=== PATIENT | male | born 1940 | race Hispanic/Latino ===

== ENCOUNTER 2016-09-11 15:12 | Inpatient (IN) | payer MEDICARE, MEDICAID ==
[2016-09-11 15:13] VITALS: BMI 25.6
[2016-09-11 16:17] LABS: BASO # 0.1 K/uL (0.0-0.2); BASO % 0.7 % (0.0-2.0); EOS # 0.1 K/uL (0.0-0.7); EOS % 0.3 % (0.0-4.0); LYMPH # 1.1 K/uL (1.0-4.3); LYMPH % 6.9 % (20.0-40.0); MEAN CORPUSCULAR HEMOGLOBIN 27.1 pg (27.0-31.0); MEAN CORPUSCULAR HGB CONC 31.7 g/dL (33.0-37.0); MEAN PLATELET VOLUME 8.2 fL (7.2-11.7); MONO # 1.6 K/uL (0.0-0.8); MONO % 9.7 % (0.0-10.0); PLATELET COUNT 304 K/uL (130-400); RED CELL DISTRIBUTION WIDTH 14.6 % (11.5-14.5); WHITE BLOOD COUNT 16.4 K/uL (4.8-10.8)
[2016-09-11 16:26] LABS: MEAN CELL VOLUME 85.4 fL (80.0-94.0)
[2016-09-11 16:28] LABS: CHLORIDE 94 mmol/L (98-107); POTASSIUM 4.4 mmol/L (3.6-5.2); SODIUM 129 mmol/L (132-148)
[2016-09-11 16:30] LABS: GFR AFRICAN-AMERICAN > 60
[2016-09-11 16:31] LABS: BLOOD UREA NITROGEN 21 mg/dL (9-20); CALCIUM 8.6 mg/dl (8.6-10.4); CARBON DIOXIDE 28 mmol/L (22-30); GLUCOSE,RANDOM 137 mg/dL (75-110)
--- NOTE | 2016-09-11 17:18 | C.PDOC ---
History Of Present Illness 75 y/o male sent to ED from [facility]. Pt was scheduled to see Dr White today but EMS never came to pick her up, so they brought her to the ED for evaluation of ongoing wounds to bilateral lower legs, L>R. PMHx CVA. Denies fever, chills, chest pain, SOB, weakness, or numbness. Time Seen by Provider: 09/11/16 15:21 Chief Complaint (Nursing): Abnormal Skin Integrity History Per: Patient History/Exam Limitations: no limitations Onset/Duration Of Symptoms: Days Current Symptoms Are (Timing): Still Present Severity: Moderate Recent travel outside of the [place]: No Past Medical History Reviewed: Historical Data, Nursing Documentation, Vital Signs Vital Signs: Last Vital Signs Temp 98.2 F 09/12/16 07:10 Pulse 109 H 09/12/16 08:00 Resp 20 09/12/16 07:10 BP 138/82 09/12/16 07:10 Pulse Ox 98 09/12/16 07:10 - Medical History PMH: Anxiety, Arthritis (R HAND), Asthma, COPD, CVA, HTN, Hypercholesterolemia - [facility] Procedures DILATION OF L FEM ART WITH DRUG-ELUT INTRALUM, PERC APPROACH (02/09/16) DILATION OF L FEM ART WITH INTRALUM DEV, PERC APPROACH (10/27/15) DILATION OF LEFT PERONEAL ARTERY, PERCUTANEOUS APPROACH (02/09/16) DILATION OF LEFT POPLITEAL ARTERY, PERCUTANEOUS APPROACH (02/09/16) EXTIRPATION OF MATTER FROM L FEM ART, PERC APPROACH (10/27/15) EXTIRPATION OF MATTER FROM L PERONEAL ART, PERC APPROACH (02/09/16) EXTIRPATION OF MATTER FROM L POPL ART, PERC APPROACH (02/09/16) PLAIN RADIOGRAPHY OF L LOW EXTREM ART USING L OSM CONTRAST (02/09/16) PLAIN RADIOGRAPHY OF L LOW EXTREM ART USING OTH CONTRAST (10/27/15) Family History: States: Unknown Family Hx - Social History Hx Tobacco Use: Yes (former smoker) Hx Alcohol Use: Yes Hx Substance Use: No Review Of Systems Constitutional: Negative for: Fever, Chills Cardiovascular: Negative for: Chest Pain Respiratory: Negative for: Shortness of Breath Musculoskeletal: Positive for: Other (chronic wounds to bilateral lower legs) Physical Exam - Physical Exam Appears: Non-toxic, Chronically Ill Skin: Warm, Dry, No Rash Head: Atraumatic, Normacephalic Chest: Symmetrical Cardiovascular: Rhythm Regular, No Murmur Respiratory: Normal Breath Sounds, No Rales, No Rhonchi, No Wheezing Gastrointestinal/Abdominal: Soft, No Tenderness Extremity: Other (Left leg: contracture of the knee, unable to fully extend. Extensive stage 4 ulcerations to distal tibia, dorsum of foot and plantar aspect of heel. Right leg: small area of stage 3 ulcers.) Neurological/Psych: Oriented x3, Normal Speech ED Course And Treatment - Laboratory Results Result Diagrams: 09/11/16 16:09 09/11/16 16:09 O2 Sat by Pulse Oximetry: 97 (on room air) Pulse Ox Interpretation: Normal Medical Decision Making Medical Decision Making: Discussed case with Christopher; he saw patient in ED, recommending admission to hospitalist, amputation likely. Patient's daughter at bedside, aware of the situation. Discussed with dr Prajapati admission refereed to perfusionist med per policy Discussed with and admitted to [facility] Disposition - Disposition Disposition: HOSPITALIZED Disposition Time: 00:00 Condition: FAIR - Clinical Impression Clinical Impression: PVD (peripheral vascular disease), Non-healing wound - Scribe Statement The provider has reviewed the documentation as recorded by the Chad Patino Provider Attestation: All medical record entries made by the Chad were at my direction and personally dictated by me. I have reviewed the chart and agree that the record accurately reflects my personal performance of the history, physical exam, medical decision making, and the department course for this patient. I have also personally directed, reviewed, and agree with the discharge instructions and disposition.
[2016-09-11 18:51] LABS: NEUTROPHIL 79 % (50-75); TOTAL CELLS COUNTED 100
[2016-09-11 18:52] LABS: LARGE PLATELETS PRESENT
--- NOTE | 2016-09-11 19:15 | CP.PCM.HP ---
History of Present Illness - History of Present Illness History of Present Illness: 75-year-old male patient with past medical history of COPD, CVA, hypertension, hypercholesterolemia, asthma who sent to the ED from senior care. Patient was scheduled to see Dr. White today but EMS never came to pick her up, so they brought her to the ED for evaluation of ongoing walker bilateral lower legs, left > right. Extent patient denies fever, chills, chest pain, shortness of breath, weakness, numbness. Present on Admission - Present on Admission Any Indicators Present on Admission: No Past Patient History - Tetanus Immunizations Tetanus Immunization: Up to Date - Past Medical History & Family History Past Medical History?: Yes - Past Social History Smoking Status: Former Smoker - CARDIAC Hx Hypercholesterolemia: Yes Hx Hypertension: Yes - PULMONARY Hx Asthma: Yes Hx Chronic Obstructive Pulmonary Disease (COPD): Yes - NEUROLOGICAL Hx Neurological Disorder: Yes HX Cerebrovascular Accident: Yes (with Ataxia, August 2015) Other/Comment: falls - HEENT Hx HEENT Problems: Yes Hx Cataracts: Yes - RENAL Hx Chronic Kidney Disease: No - INTEGUMENTARY Hx Dermatological Problems: No - MUSCULOSKELETAL/RHEUMATOLOGICAL Hx Arthritis: Yes (R HAND) - GASTROINTESTINAL Hx Gastrointestinal Disorders: No - GENITOURINARY/GYNECOLOGICAL Hx Genitourinary Disorders: No - PSYCHIATRIC Hx Anxiety: Yes Hx Substance Use: No - SURGICAL HISTORY Hx Surgeries: Yes Hx Musculoskeletal Surgery: Yes (left elbow, right ankle) Other/Comment: cataract sx. lt. eye - ANESTHESIA Hx Anesthesia: Yes Hx Anesthesia Reactions: No Hx Malignant Hyperthermia: No Meds Allergies/Adverse Reactions: Allergies Allergy/AdvReac Type Severity Reaction Status Date / Time No Known Allergies Allergy Verified 09/11/16 15:39 Results - Vital Signs Recent Vital Signs: Last Vital Signs Temp 98.4 F 09/11/16 19:00 Pulse 118 H 09/11/16 19:00 Resp 20 09/11/16 19:00 BP 131/74 09/11/16 19:00 Pulse Ox 98 09/11/16 19:00 - Labs Result Diagrams: 09/17/16 07:10 09/17/16 07:10 Assessment & Plan (1) LINCOLN (acute kidney injury) Status: Acute (2) Acute CVA (cerebrovascular accident) Status: Acute (3) Ataxia Status: Acute (4) CVA (cerebral vascular accident) Status: Acute (5) Cellulitis Status: Acute (6) DVT prophylaxis Status: Acute (7) Dehydration Status: Acute (8) Diabetic foot ulcer Status: Acute Priority: High (9) Foot drop, left Status: Acute (10) Foot ulcer, left Status: Acute (11) Left-sided weakness Status: Acute (12) Leukocytosis Status: Acute (13) Non-healing wound Status: Acute (14) PVD (peripheral vascular disease) Status: Acute (15) Rectal bleeding Status: Acute (16) Renal insufficiency Status: Acute (17) Sacral decubitus ulcer Status: Acute (18) Seronegative arthropathy of hand Status: Acute (19) Ulcer of left ankle Status: Acute (20) COPD (chronic obstructive pulmonary disease) Status: Chronic (21) Diabetes mellitus Status: Chronic Priority: Medium (22) Hypertension Status: Chronic Priority: Medium (23) Incomplete RBBB Status: Chronic (24) PAD (peripheral artery disease) Status: Chronic (25) Small vessel disease, cerebrovascular Status: Chronic Priority: Medium (26) C. difficile colitis Status: Suspected - Assessment and Plan (Free Text) Plan: Consult cardiology Consult ID DuoNeb Plavix Heparin Piperacillin sod/tazobactam Cozaar Singulair Advair Diskus
[2016-09-11] MEDS: Piperacillin/Tazobact 3.375 GM in Sodium Chloride 100 ML IVPB SCH ×2 (19:33→20:00)
[2016-09-11] MEDS: Collagenase 250 Units/gm Ointment(30 gm) TOP SCH (23:08)
[2016-09-11] MEDS: Albuterol-Ipratrop 3 mg / 0.5 (3 ml) UD IH SCH (23:37)
[2016-09-12] MEDS: Piperacillin/Tazobact 3.375 GM in Sodium Chloride 100 ML IVPB SCH ×4 (01:30→20:30)
[2016-09-12] MEDS: Albuterol-Ipratrop 3 mg / 0.5 (3 ml) UD IH SCH ×2 (07:29→16:00)
--- NOTE | 2016-09-12 08:46 | CP.PCM.PN ---
Subjective - Date & Time of Evaluation Date of Evaluation: 09/12/16 Time of Evaluation: 08:45 - Subjective Subjective: will need left aka dw will plan for 09/12 Objective - Vital Signs/Intake and Output Vital Signs (last 24 hours): Temp Pulse Resp BP Pulse Ox 98.3 F 109 H 20 115/71 98 09/12/16 00:00 09/12/16 00:00 09/12/16 00:00 09/12/16 00:00 09/12/16 00:00 Intake and Output: 09/12/16 09/12/16 06:59 18:59 Intake Total 400 Balance 400 - Medications Medications: Current Medications Albuterol/Ipratropium (Duoneb 3 Mg/0.5 Mg (3 Ml) Ud) 3 ml IH RQ8 [facility] Last Admin: 09/12/16 07:29 Dose: 3 ml Clopidogrel Bisulfate (Plavix) 75 mg PO DAILY [facility] Collagenase (Santyl) 1 gm TOP Q8 [facility] Last Admin: 09/11/16 23:08 Dose: Not Given Fentanyl (Duragesic) 1 patch TD Q72 [facility] Last Admin: 09/11/16 21:37 Dose: 1 patch Glipizide (Glucotrol) 5 mg PO DAILY [facility] Heparin Sodium (Porcine) (Heparin) 5,000 units SC Q12 [facility] Last Admin: 09/11/16 23:09 Dose: 5,000 units Home Med (Budesonide/Formoterol Fumarate [Symbicort 160-4.5 Mcg Inhaler]) 1 aer IH Q12 [facility] Piperacillin Sod/Tazobactam (Sod 3.375 gm/ Sodium Chloride) 100 mls @ 200 mls/ hr IVPB Q6H [facility] Last Admin: 09/12/16 08:11 Dose: 200 mls/hr Losartan Potassium (Cozaar) 50 mg PO DAILY [facility] Magnesium Oxide (Mag-Ox) 400 mg PO BID [facility] Montelukast Sodium (Singulair) 10 mg PO HS [facility] Last Admin: 09/11/16 21:39 Dose: 10 mg Tramadol HCl (Ultram) 50 mg PO TID [facility]
[2016-09-12] MEDS: Magnesium Oxide 400 mg Tab UD PO SCH ×2 (09:45→17:16)
[2016-09-12] MEDS: Collagenase 250 Units/gm Ointment(30 gm) TOP SCH (14:50)
--- NOTE | 2016-09-12 18:32 | CP.PCM.CON ---
History of Present Illness - History of Present Illness History of Present Illness: 75 y/o male sent to ED from [facility]ial. brought her to the ED for evaluation of ongoing wounds to bilateral lower legs, L>R. PMHx CVA. Denies fever, chills, chest pain, SOB, weakness, or numbness. - Medical History PMH: Anxiety, Arthritis (R HAND), Asthma, COPD, CVA, HTN, Hypercholesterolemia Past Patient History - Tetanus Immunizations Tetanus Immunization: Up to Date - Past Medical History & Family History Past Medical History?: Yes - Past Social History Smoking Status: Former Smoker - CARDIAC Hx Hypercholesterolemia: Yes Hx Hypertension: Yes - PULMONARY Hx Asthma: Yes Hx Chronic Obstructive Pulmonary Disease (COPD): Yes - NEUROLOGICAL Hx Neurological Disorder: Yes HX Cerebrovascular Accident: Yes (with Ataxia, August 2015) Other/Comment: falls - HEENT Hx HEENT Problems: Yes Hx Cataracts: Yes - RENAL Hx Chronic Kidney Disease: No - INTEGUMENTARY Hx Dermatological Problems: No Other/Comment: bilateral lower extremities wound/ ulcers - MUSCULOSKELETAL/RHEUMATOLOGICAL Hx Arthritis: Yes (R HAND) - GASTROINTESTINAL Hx Gastrointestinal Disorders: No - GENITOURINARY/GYNECOLOGICAL Hx Genitourinary Disorders: No - PSYCHIATRIC Hx Anxiety: Yes Hx Substance Use: No - SURGICAL HISTORY Hx Surgeries: Yes Hx Musculoskeletal Surgery: Yes (left elbow, right ankle) Other/Comment: cataract sx. lt. eye - ANESTHESIA Hx Anesthesia: Yes Hx Anesthesia Reactions: No Hx Malignant Hyperthermia: No Meds Allergies/Adverse Reactions: Allergies Allergy/AdvReac Type Severity Reaction Status Date / Time No Known Allergies Allergy Verified 09/11/16 15:39 - Medications Medications: Current Medications Albuterol/Ipratropium (Duoneb 3 Mg/0.5 Mg (3 Ml) Ud) 3 ml IH RQ8 [facility] Last Admin: 09/12/16 07:29 Dose: 3 ml Clopidogrel Bisulfate (Plavix) 75 mg PO DAILY [facility] Last Admin: 09/12/16 09:45 Dose: 75 mg Fentanyl (Duragesic) 1 patch TD Q72 [facility] Last Admin: 09/11/16 21:37 Dose: 1 patch Glipizide (Glucotrol) 5 mg PO DAILY [facility] Last Admin: 09/12/16 09:45 Dose: 5 mg Heparin Sodium (Porcine) (Heparin) 5,000 units SC Q12 [facility] Last Admin: 09/12/16 09:45 Dose: 5,000 units Piperacillin Sod/Tazobactam (Sod 3.375 gm/ Sodium Chloride) 100 mls @ 200 mls/ hr IVPB Q6H [facility] Last Admin: 09/12/16 13:36 Dose: 200 mls/hr Losartan Potassium (Cozaar) 50 mg PO DAILY [facility] Last Admin: 09/12/16 09:45 Dose: 50 mg Magnesium Oxide (Mag-Ox) 400 mg PO BID [facility] Last Admin: 09/12/16 17:16 Dose: 400 mg Montelukast Sodium (Singulair) 10 mg PO HS [facility] Last Admin: 09/11/16 21:39 Dose: 10 mg Pneumococcal Polyvalent Vaccine (Pneumovax 23 Vaccine) 0.5 ml IM .ONCE ONE Stop: 09/14/16 11:04 Fluticasone/Salmeterol (Advair Diskus 250/50) 1 puff IH RQ12 [facility] Tramadol HCl (Ultram) 50 mg PO TID [facility] Last Admin: 09/12/16 17:16 Dose: 50 mg Results - Vital Signs Recent Vital Signs: Last Vital Signs Temp 97.8 F 09/12/16 15:18 Pulse 114 H 09/12/16 15:18 Resp 20 09/12/16 15:18 BP 120/71 09/12/16 15:18 Pulse Ox 96 09/12/16 15:18 - Labs Result Diagrams: 09/11/16 16:09 09/11/16 16:09 Labs: Laboratory Results - last 24 hr 09/11/16 09/12/16 09/12/16 21:11 06:36 11:16 POC Glucose (mg/dL) 136 H 163 H Blood Type O NEGATIVE Antibody Screen Negative 09/12/16 09/12/16 12:06 16:40 POC Glucose (mg/dL) 223 H 187 H Blood Type Antibody Screen
--- NOTE | 2016-09-12 18:49 | CP.PCM.PN ---
Subjective - Date & Time of Evaluation Date of Evaluation: 09/12/16 Time of Evaluation: 10:40 - Subjective Subjective: clinically same Objective - Vital Signs/Intake and Output Vital Signs (last 24 hours): Temp Pulse Resp BP Pulse Ox 97.8 F 114 H 20 120/71 96 09/12/16 15:18 09/12/16 15:18 09/12/16 15:18 09/12/16 15:18 09/12/16 15:18 Intake and Output: 09/12/16 09/12/16 06:59 18:59 Intake Total 400 Balance 400 - Medications Medications: Current Medications Albuterol/Ipratropium (Duoneb 3 Mg/0.5 Mg (3 Ml) Ud) 3 ml IH RQ8 [facility] Last Admin: 09/12/16 07:29 Dose: 3 ml Clopidogrel Bisulfate (Plavix) 75 mg PO DAILY [facility] Last Admin: 09/12/16 09:45 Dose: 75 mg Fentanyl (Duragesic) 1 patch TD Q72 [facility] Last Admin: 09/11/16 21:37 Dose: 1 patch Glipizide (Glucotrol) 5 mg PO DAILY [facility] Last Admin: 09/12/16 09:45 Dose: 5 mg Heparin Sodium (Porcine) (Heparin) 5,000 units SC Q12 [facility] Last Admin: 09/12/16 09:45 Dose: 5,000 units Piperacillin Sod/Tazobactam (Sod 3.375 gm/ Sodium Chloride) 100 mls @ 200 mls/ hr IVPB Q6H [facility] Last Admin: 09/12/16 13:36 Dose: 200 mls/hr Losartan Potassium (Cozaar) 50 mg PO DAILY [facility] Last Admin: 09/12/16 09:45 Dose: 50 mg Magnesium Oxide (Mag-Ox) 400 mg PO BID [facility] Last Admin: 09/12/16 17:16 Dose: 400 mg Montelukast Sodium (Singulair) 10 mg PO HS [facility] Last Admin: 09/11/16 21:39 Dose: 10 mg Pneumococcal Polyvalent Vaccine (Pneumovax 23 Vaccine) 0.5 ml IM .ONCE ONE Stop: 09/14/16 11:04 Fluticasone/Salmeterol (Advair Diskus 250/50) 1 puff IH RQ12 [facility] Tramadol HCl (Ultram) 50 mg PO TID [facility] Last Admin: 09/12/16 17:16 Dose: 50 mg - Constitutional Appears: Well - Head Exam Head Exam: ATRAUMATIC, NORMAL INSPECTION, NORMOCEPHALIC - Eye Exam Eye Exam: EOMI, Normal appearance, PERRL Pupil Exam: NORMAL ACCOMODATION, PERRL - ENT Exam ENT Exam: Mucous Membranes Moist, Normal Exam - Neck Exam Neck Exam: Full ROM, Normal Inspection. absent: Lymphadenopathy - Respiratory Exam Respiratory Exam: Decreased Breath Sounds - Cardiovascular Exam Cardiovascular Exam: REGULAR RHYTHM, +S1, +S2 - GI/Abdominal Exam GI & Abdominal Exam: Soft, Diminished Bowel Sounds - Rectal Exam Rectal Exam: Deferred Assessment and Plan (1) LINCOLN (acute kidney injury) Status: Acute (2) Acute CVA (cerebrovascular accident) Status: Acute (3) Ataxia Status: Acute (4) CVA (cerebral vascular accident) Status: Acute (5) Cellulitis Status: Acute (6) DVT prophylaxis Status: Acute (7) Dehydration Status: Acute (8) Diabetic foot ulcer Status: Acute (9) Foot drop, left Status: Acute (10) Foot ulcer, left Status: Acute (11) Left-sided weakness Status: Acute (12) Leukocytosis Status: Acute (13) Non-healing wound Status: Acute (14) PVD (peripheral vascular disease) Status: Acute (15) Rectal bleeding Status: Acute (16) Renal insufficiency Status: Acute (17) Sacral decubitus ulcer Status: Acute (18) Seronegative arthropathy of hand Status: Acute (19) Ulcer of left ankle Status: Acute (20) COPD (chronic obstructive pulmonary disease) Status: Chronic (21) Diabetes mellitus Status: Chronic (22) Hypertension Status: Chronic (23) Incomplete RBBB Status: Chronic (24) PAD (peripheral artery disease) Status: Chronic (25) Small vessel disease, cerebrovascular Status: Chronic (26) C. difficile colitis Status: Suspected - Assessment and Plan (Free Text) Plan: f/u cardiology f/u ID DuoNeb Plavix Heparin Piperacillin sod/tazobactam Cozaar Singulair Advair Diskus
[2016-09-12] MEDS: Fluticasone-Salmeterol 250-50mcg Diskus IH SCH (19:24)
--- NOTE | 2016-09-12 22:53 | CP.PCM.CON ---
History of Present Illness - History of Present Illness History of Present Illness: Reason For Consultation: Pre Op cardiac clearance 75 Male poor historian, severe PAD scheduled for Left BKA No recent cardiac work up available Recommend stress test prior to the surgery Patient scheduled for stress test in am 75 y/o male sent to ED from [facility]. Pt was scheduled to see Dr White today but EMS never came to pick her up, so they brought her to the ED for evaluation of ongoing wounds to bilateral lower legs, L>R. PMHx CVA. Denies fever, chills, chest pain, SOB, weakness, or numbness. Chief Complaint (Nursing): Leg ulcers/PAD History Per: Patient History/Exam Limitations: no limitations Onset/Duration Of Symptoms: Days Current Symptoms Are (Timing): Still Present Severity: Moderate Recent travel outside of the [place]: No Past Medical History Reviewed: Historical Data, Nursing Documentation, Vital Signs Vital Signs: Last Vital Signs Temp 98.2 F 09/12/16 07:10 Pulse 109 H 09/12/16 08:00 Resp 20 09/12/16 07:10 BP 138/82 09/12/16 07:10 Pulse Ox 98 09/12/16 07:10 - Medical History PMH: Anxiety, Arthritis (R HAND), Asthma, COPD, CVA, HTN, Hypercholesterolemia - [facility] Procedures DILATION OF L FEM ART WITH DRUG-ELUT INTRALUM, PERC APPROACH (02/09/16) DILATION OF L FEM ART WITH INTRALUM DEV, PERC APPROACH (10/27/15) DILATION OF LEFT PERONEAL ARTERY, PERCUTANEOUS APPROACH (02/09/16) DILATION OF LEFT POPLITEAL ARTERY, PERCUTANEOUS APPROACH (02/09/16) EXTIRPATION OF MATTER FROM L FEM ART, PERC APPROACH (10/27/15) EXTIRPATION OF MATTER FROM L PERONEAL ART, PERC APPROACH (02/09/16) EXTIRPATION OF MATTER FROM L POPL ART, PERC APPROACH (02/09/16) PLAIN RADIOGRAPHY OF L LOW EXTREM ART USING L OSM CONTRAST (02/09/16) PLAIN RADIOGRAPHY OF L LOW EXTREM ART USING OTH CONTRAST (10/27/15) Family History: States: Unknown Family Hx - Social History Hx Tobacco Use: Yes (former smoker) Hx Alcohol Use: Yes Hx Substance Use: No Review Of Systems Constitutional: Negative for: Fever, Chills Cardiovascular: Negative for: Chest Pain Respiratory: Negative for: Shortness of Breath Musculoskeletal: Positive for: Other (chronic wounds to bilateral lower legs) Physical Exam - Physical Exam Appears: Non-toxic, Chronically Ill Skin: Warm, Dry, No Rash Head: Atraumatic, Normacephalic Chest: Symmetrical Cardiovascular: Rhythm Regular, No Murmur Respiratory: Normal Breath Sounds, No Rales, No Rhonchi, No Wheezing Gastrointestinal/Abdominal: Soft, No Tenderness Extremity: Other (Left leg: contracture of the knee, unable to fully extend. Extensive stage 4 ulcerations to distal tibia, dorsum of foot and plantar aspect of heel. Right leg: small area of stage 3 ulcers.) Neurological/Psych: Oriented x3, Normal Speech Past Patient History - Tetanus Immunizations Tetanus Immunization: Up to Date - Past Medical History & Family History Past Medical History?: Yes - Past Social History Smoking Status: Former Smoker - CARDIAC Hx Hypercholesterolemia: Yes Hx Hypertension: Yes - PULMONARY Hx Asthma: Yes Hx Chronic Obstructive Pulmonary Disease (COPD): Yes - NEUROLOGICAL Hx Neurological Disorder: Yes HX Cerebrovascular Accident: Yes (with Ataxia, August 2015) Other/Comment: falls - HEENT Hx HEENT Problems: Yes Hx Cataracts: Yes - RENAL Hx Chronic Kidney Disease: No - INTEGUMENTARY Hx Dermatological Problems: No Other/Comment: bilateral lower extremities wound/ ulcers - MUSCULOSKELETAL/RHEUMATOLOGICAL Hx Arthritis: Yes (R HAND) - GASTROINTESTINAL Hx Gastrointestinal Disorders: No - GENITOURINARY/GYNECOLOGICAL Hx Genitourinary Disorders: No - PSYCHIATRIC Hx Anxiety: Yes Hx Substance Use: No - SURGICAL HISTORY Hx Surgeries: Yes Hx Musculoskeletal Surgery: Yes (left elbow, right ankle) Other/Comment: cataract sx. lt. eye - ANESTHESIA Hx Anesthesia: Yes Hx Anesthesia Reactions: No Hx Malignant Hyperthermia: No Meds Allergies/Adverse Reactions: Allergies Allergy/AdvReac Type Severity Reaction Status Date / Time No Known Allergies Allergy Verified 09/11/16 15:39 - Medications Medications: Current Medications Albuterol/Ipratropium (Duoneb 3 Mg/0.5 Mg (3 Ml) Ud) 3 ml IH RQ8 [facility] Last Admin: 09/12/16 16:00 Dose: 3 ml Clopidogrel Bisulfate (Plavix) 75 mg PO DAILY [facility] Last Admin: 09/12/16 09:45 Dose: 75 mg Fentanyl (Duragesic) 1 patch TD Q72 [facility] Last Admin: 09/11/16 21:37 Dose: 1 patch Glipizide (Glucotrol) 5 mg PO DAILY [facility] Last Admin: 09/12/16 09:45 Dose: 5 mg Heparin Sodium (Porcine) (Heparin) 5,000 units SC Q12 [facility] Last Admin: 09/12/16 21:19 Dose: Not Given Piperacillin Sod/Tazobactam (Sod 3.375 gm/ Sodium Chloride) 100 mls @ 200 mls/ hr IVPB Q6H [facility] Last Admin: 09/12/16 20:30 Dose: 200 mls/hr Losartan Potassium (Cozaar) 50 mg PO DAILY [facility] Last Admin: 09/12/16 09:45 Dose: 50 mg Magnesium Oxide (Mag-Ox) 400 mg PO BID [facility] Last Admin: 09/12/16 17:16 Dose: 400 mg Montelukast Sodium (Singulair) 10 mg PO HS [facility] Last Admin: 09/12/16 21:19 Dose: 10 mg Pneumococcal Polyvalent Vaccine (Pneumovax 23 Vaccine) 0.5 ml IM .ONCE ONE Stop: 09/14/16 11:04 Fluticasone/Salmeterol (Advair Diskus 250/50) 1 puff IH RQ12 [facility] Last Admin: 09/12/16 19:24 Dose: 1 puff Tramadol HCl (Ultram) 50 mg PO TID [facility] Last Admin: 09/12/16 17:16 Dose: 50 mg Results - Vital Signs Recent Vital Signs: Last Vital Signs Temp 97.8 F 09/12/16 15:18 Pulse 114 H 09/12/16 15:18 Resp 20 09/12/16 15:18 BP 120/71 09/12/16 15:18 Pulse Ox 96 09/12/16 15:18 - Labs Result Diagrams: 09/16/16 07:55 09/16/16 07:55 Labs: Laboratory Results - last 24 hr 09/12/16 09/12/16 09/12/16 06:36 11:16 12:06 POC Glucose (mg/dL) 163 H 223 H Blood Type O NEGATIVE Antibody Screen Negative 09/12/16 09/12/16 16:40 21:19 POC Glucose (mg/dL) 187 H 224 H Blood Type Antibody Screen Assessment & Plan - Assessment and Plan (Free Text) Assessment: 1. PAD 2. CAD 3. Dementia 4. HTN
[2016-09-13] MEDS: Albuterol-Ipratrop 3 mg / 0.5 (3 ml) UD IH SCH ×4 (00:58→23:39)
[2016-09-13] MEDS: Piperacillin/Tazobact 3.375 GM in Sodium Chloride 100 ML IVPB SCH ×4 (01:35→19:53)
--- NOTE | 2016-09-13 01:54 | CON ---
DATE: 09/12/2016 HISTORY OF PRESENT ILLNESS: This is a 75-year-old male admitted to [facility] with history of n onhealing wounds to left lower extremity. The patient has history of severe peripheral vascular dise ase and was admitted with nonhealing wounds to the legs, left greater than right. He started empiric ally on IV antibiotic therapy and infectious disease consults were requested. He lives in a chcf. He has chronically contracted left lower extremity, which is ulcerated. He denies fever, chil ls, headache, earache, toothache, visual disturbances, weight loss. He is a poor historian. PAST MEDICAL HISTORY: Stroke with left-sided weakness, hypertension. Past medical history also incl udes anxiety, osteoarthritis, asthma, COPD, hypertension, hyperlipidemia. FAMILY HISTORY: Noncontributory. ALLERGIES: No known allergies. REVIEW OF SYSTEMS: As per HPI. PHYSICAL EXAMINATION: GENERAL: Reveals a chronically ill elderly male who is awake, alert, oriented, in no acute distress, confused to time and place. VITAL SIGNS: T-max 101, blood pressure 130/70, pulse 76, respiratory rate 18. HEENT: Normal. Ears normal. Nose normal. Eyes: Pupils reactive. Sclerae nonicteric. Conjunctiv ae pale. Ears normal. Pharynx not injected. NECK: No rigidity. No thyromegaly. CHEST: Symmetrical expansion bilaterally. LUNGS: Decreased breath sounds, scattered rhonchi. HEART: S1, S2. Distant, regular. ABDOMEN: Soft, nontender. EXTREMITIES: No cyanosis, no clubbing. Pulses palpable. Joints freely mobile on the upper extremit ies and lower extremities. Reveals ulceration on both lower extremities, left greater than right, wi th some cellulitis. Pulses diminished. Left leg is severely contracted. NEUROLOGIC: Left-sided weakness, remnants from previous stroke. MEDICATIONS: Advair, losartan, albuterol, fentanyl, glipizide, Zosyn, Plavix, Singulair, tramadol. LABORATORY DATA: Reveal a white count of 16.4, hemoglobin 9.2, platelet count is 304,000. BUN and c reatinine are 21 and 0.7, sodium is 129. IMPRESSION: A 75-year-old male with history of stroke and left-sided weakness comes from nursing anamika e with severely contracted left leg, which has developed severe ulceration. Options at this point ar e limited. ASSESSMENT AND PLAN: He will likely need hlybo-coj-etam amputation to prevent systemic sepsis and fu rther deterioration in his overall health. This may improve his short-term prognosis. The patient s uffers from chronic obstructive pulmonary disorder, multiple allergies, hypertension, stroke, renal i nsufficiency, as well as Clostridium difficile colitis in the past. We will continue current therapy , add further recommendations as needed based on results of cultures of blood, urine and wound. Ruslan Cotton MD cc: [id number] TT: 09/13/2016 01:53:59 Confirmation # [id number] Dictation # [id number] mn
[2016-09-13] MEDS: Fluticasone-Salmeterol 250-50mcg Diskus IH SCH ×2 (07:33→20:03)
--- NOTE | 2016-09-13 08:02 | PN ---
DATE: 09/13/2016 I have been taking care of this patient in [place] for the past 3-4 months. Service was changed to mine from Dr. Chaparro. I have been trying to get him to Dr. White for the past month. He missed a couple of appointments. Finally we got him to the Emergency Room. I was told he wanted [facility]. Apparently, he went to [place]. No one called me from the ER. No one called me f rom the floor. I finally tracked him down and I am here to see him today. He is my patient. He lissette l be transferred to my service. He will go for cardiac eval and then left [place] most probably with Dr. White, which I have been trying to arrange for the past 3 months. He is comfortable in bed, marco gnizes me, knows me. He understands the situation. PHYSICAL EXAMINATION: VITAL SIGNS: 99.3 temp, 111 pulse, 121/80 blood pressure, 20 respiratory rate, 98% O2 sat on room ai r. HEENT: Head is atraumatic, normocephalic. HEART: Regular rate. LUNGS: Decreased breath sounds but clear. ABDOMEN: Soft. EXTREMITIES: Left foot is bandaged. He has a nonhealing ulcer. MEDICATIONS: He is currently on Advair, Cozaar, DuoNeb, Duragesic patch, Glucotrol, heparin, magnesi um, Zosyn, Plavix, Singulair and Ultram. LABORATORY DATA: He had a 16.4 white count, 9.2 hemoglobin, 29 hematocrit with 304 platelets. Sodiu m 129, potassium 4.4, BUN 21, creatinine 0.7. Last blood sugar was 224. Sugar is now 137. He is being seen by cardiology, infectious disease and vascular surgery. He should go for surgery to day for a nonhealing left foot ulcer and then go for a left above-knee amputation. I am continuing t o take care of this patient. I will transfer him to my service. Kev Solorzano DO cc: [id number] TT: 09/13/2016 08:01:59 Confirmation # [id number] Dictation # [id number] mn
[2016-09-13] MEDS: Magnesium Oxide 400 mg Tab UD PO SCH ×2 (11:33→17:40)
[2016-09-13] MEDS ORDERED: Lactated Ringer's 1,000 ML IV ONE ×3 (12:55→16:00)
[2016-09-13] MEDS ORDERED: Propofol 10 mg/ml Inj (20 ML) ONE (12:57)
[2016-09-13] MEDS ORDERED: Midazolam 2 MG/2 ML VIAL ONE (12:59)
[2016-09-13] MEDS ORDERED: HYDROmorphone 0.5 mg/0.5 ml ISec IVP PRN (14:36)
--- NOTE | 2016-09-13 14:43 | PCM.SURG1 ---
Surgeon's Initial Post Op Note - Surgeon's Notes Surgeon: Dr. White Automatic Pilot Mechanic: Dr. Alexander PGY-2, Alexsandra CARRERA III Type of Anesthesia: General Endo Anesthesia Administered By: Dr. Magallanes Pre-Operative Diagnosis: Left PAD Operative Findings: see operative report Post-Operative Diagnosis: Left PAD Operation Performed: Left Above knee amputation Specimen/Specimens Removed: left leg below knee Estimated Blood Loss: EBL {In ML}: 350 Blood Products Given: N/A Drains Used: No Drains Post-Op Condition: Fair Date of Surgery/Procedure: 09/13/16 Time of Surgery/Procedure: 14:44
--- NOTE | 2016-09-13 16:10 | OP ---
PROCEDURE DATE: 09/13/2016 PREOPERATIVE DIAGNOSIS: Gangrene, left leg; contracture, immobility. PROCEDURE CARRIED OUT: Left above-knee amputation. SURGEON: Darwin White Jr., MD FIOS LINE INSTALLER: Dr. Alexander. ANESTHESIOLOGIST: Dr. Magallanes. INDICATIONS: The patient is an older man with a variety of medical problems: Gangrene of the left f oot, contracted knee, unable to extend knee, unable to really extend hip; extensive gangrene of the f oot. OPERATIVE FINDINGS: There was a palpable pulse in the femoral artery as it was amputated. The rest of the intraoperative findings were unremarkable. BLOOD LOSS: 300-350 mL. PROCEDURE: The patient was given general anesthesia and intravenous antibiotics. An incision was ma de just above the knee, carried it down to bone. The bone, artery tendons were all cut. They was sood ture ligated. After completion of this and obtaining good hemostasis, we then closed the wounds. Af ter we had done this, we applied a noncompressive dressing. The patient tolerated the procedure well . OPERATION CARRIED OUT: Left above-knee amputation. Darwin White Jr., MD cc: [id number] TT: 09/13/2016 16:10:14 ga
[2016-09-13] MEDS: Lactated Ringer's 1,000 ML IV SCH (16:47)
--- NOTE | 2016-09-13 19:09 | CP.PCM.PN ---
Subjective - Date & Time of Evaluation Date of Evaluation: 09/13/16 Time of Evaluation: 10:00 - Subjective Subjective: cultures pending iv rx in progress for stress test prior to AKA Objective - Vital Signs/Intake and Output Vital Signs (last 24 hours): Temp Pulse Resp BP Pulse Ox 97.6 F 97 H 20 101/64 100 09/13/16 17:03 09/13/16 17:03 09/13/16 17:03 09/13/16 17:03 09/13/16 17:03 Intake and Output: 09/13/16 09/14/16 18:59 06:59 Output Total 201 Balance -201 - Medications Medications: Current Medications Albuterol/Ipratropium (Duoneb 3 Mg/0.5 Mg (3 Ml) Ud) 3 ml IH RQ8 [facility] Last Admin: 09/13/16 07:33 Dose: 3 ml Clopidogrel Bisulfate (Plavix) 75 mg PO DAILY [facility] Last Admin: 09/13/16 11:32 Dose: Not Given Fentanyl (Duragesic) 1 patch TD Q72 [facility] Last Admin: 09/11/16 21:37 Dose: 1 patch Glipizide (Glucotrol) 5 mg PO DAILY [facility] Last Admin: 09/13/16 11:33 Dose: Not Given Heparin Sodium (Porcine) (Heparin) 5,000 units SC Q12 [facility] Last Admin: 09/12/16 21:19 Dose: Not Given Hydromorphone HCl (Dilaudid) 0.5 mg IVP Q4H PRN PRN Reason: Pain, moderate (4-7) Piperacillin Sod/Tazobactam (Sod 3.375 gm/ Sodium Chloride) 100 mls @ 200 mls/ hr IVPB Q6H [facility] Last Admin: 09/13/16 14:10 Dose: Not Given Lactated Ringer's (Lactated Ringer's) 1,000 mls @ 100 mls/hr IV .Q10H [facility] Last Admin: 09/13/16 16:47 Dose: 100 mls/hr Losartan Potassium (Cozaar) 50 mg PO DAILY [facility] Last Admin: 09/13/16 11:33 Dose: 50 mg Magnesium Oxide (Mag-Ox) 400 mg PO BID [facility] Last Admin: 09/13/16 17:40 Dose: 400 mg Montelukast Sodium (Singulair) 10 mg PO HS [facility] Last Admin: 09/12/16 21:19 Dose: 10 mg Ondansetron HCl (Zofran Inj) 4 mg IVP Q4 PRN PRN Reason: Nausea/Vomiting Pneumococcal Polyvalent Vaccine (Pneumovax 23 Vaccine) 0.5 ml IM .ONCE ONE Stop: 09/14/16 11:04 Fluticasone/Salmeterol (Advair Diskus 250/50) 1 puff IH RQ12 [facility] Last Admin: 09/13/16 07:33 Dose: 1 puff Tramadol HCl (Ultram) 50 mg PO TID [facility] Last Admin: 09/13/16 17:16 Dose: 50 mg - Constitutional Appears: Non-toxic, Confused, Cachectic, Chronically Ill - Head Exam Head Exam: NORMOCEPHALIC - Eye Exam Eye Exam: absent: Scleral icterus - ENT Exam ENT Exam: Mucous Membranes Dry - Neck Exam Neck Exam: absent: Lymphadenopathy - Respiratory Exam Respiratory Exam: Decreased Breath Sounds, Rhonchi - Cardiovascular Exam Cardiovascular Exam: REGULAR RHYTHM, +S1, +S2 - GI/Abdominal Exam GI & Abdominal Exam: Distended, Soft. absent: Tenderness - Rectal Exam Rectal Exam: Deferred - Exam Exam: NORMAL INSPECTION - Extremities Exam Extremities Exam: Pedal Edema, Tenderness. absent: Calf Tenderness - Back Exam Back Exam: absent: CVA tenderness (L), CVA tenderness (R), paraspinal tenderness Assessment and Plan - Assessment and Plan (Free Text) Plan: infected LLE need aka iv rx in progress await cultures discussed with Dr Sanjay Chaparro
[2016-09-13 21:29] LABS: HEMATOCRIT 21.4 % (35.0-51.0); MEAN CELL VOLUME 84.9 fL (80.0-94.0); MEAN CORPUSCULAR HGB CONC 31.8 g/dL (33.0-37.0); MEAN PLATELET VOLUME 8.3 fL (7.2-11.7); RED CELL DISTRIBUTION WIDTH 14.6 % (11.5-14.5); WHITE BLOOD COUNT 13.4 K/uL (4.8-10.8)
[2016-09-13] MEDS: HYDROmorphone 0.5 mg/0.5 ml ISec IVP PRN (22:53)
--- NOTE | 2016-09-13 23:05 | CP.PCM.PN ---
Subjective - Date & Time of Evaluation Date of Evaluation: 09/13/16 Time of Evaluation: 18:10 - Subjective Subjective: Patient s/p surgery Uneventful Not in distress Review Of Systems Constitutional: Negative for: Fever, Chills Cardiovascular: Negative for: Chest Pain Respiratory: Negative for: Shortness of Breath Musculoskeletal: Positive for: Other (chronic wounds to bilateral lower legs) Physical Exam - Physical Exam Appears: Non-toxic, Chronically Ill Skin: Warm, Dry, No Rash Head: Atraumatic, Normacephalic Chest: Symmetrical Cardiovascular: Rhythm Regular, No Murmur Respiratory: Normal Breath Sounds, No Rales, No Rhonchi, No Wheezing Gastrointestinal/Abdominal: Soft, No Tenderness Extremity: Other S/P Left BKA . Right leg: small area of stage 3 ulcers.) Neurological/Psych: Oriented x3, Normal Speech Objective - Vital Signs/Intake and Output Vital Signs (last 24 hours): Temp Pulse Resp BP Pulse Ox 97.4 F L 87 18 107/57 L 100 09/13/16 22:58 09/13/16 22:58 09/13/16 22:58 09/13/16 22:58 09/13/16 17:03 Intake and Output: 09/13/16 09/14/16 18:59 06:59 Intake Total 0 Output Total 201 Balance -201 0 - Medications Medications: Current Medications Albuterol/Ipratropium (Duoneb 3 Mg/0.5 Mg (3 Ml) Ud) 3 ml IH RQ8 [facility] Last Admin: 09/13/16 20:03 Dose: 3 ml Clopidogrel Bisulfate (Plavix) 75 mg PO DAILY [facility] Last Admin: 09/13/16 11:32 Dose: Not Given Fentanyl (Duragesic) 1 patch TD Q72 [facility] Last Admin: 09/11/16 21:37 Dose: 1 patch Glipizide (Glucotrol) 5 mg PO DAILY [facility] Last Admin: 09/13/16 11:33 Dose: Not Given Heparin Sodium (Porcine) (Heparin) 5,000 units SC Q12 [facility] Last Admin: 09/12/16 21:19 Dose: Not Given Hydromorphone HCl (Dilaudid) 0.5 mg IVP Q4H PRN PRN Reason: Pain, moderate (4-7) Last Admin: 09/13/16 22:53 Dose: 0.5 mg Piperacillin Sod/Tazobactam (Sod 3.375 gm/ Sodium Chloride) 100 mls @ 200 mls/ hr IVPB Q6H [facility] Last Admin: 09/13/16 19:53 Dose: 200 mls/hr Lactated Ringer's (Lactated Ringer's) 1,000 mls @ 100 mls/hr IV .Q10H [facility] Last Admin: 09/13/16 16:47 Dose: 100 mls/hr Losartan Potassium (Cozaar) 50 mg PO DAILY [facility] Last Admin: 09/13/16 11:33 Dose: 50 mg Magnesium Oxide (Mag-Ox) 400 mg PO BID [facility] Last Admin: 09/13/16 17:40 Dose: 400 mg Montelukast Sodium (Singulair) 10 mg PO HS [facility] Last Admin: 09/13/16 22:33 Dose: Not Given Ondansetron HCl (Zofran Inj) 4 mg IVP Q4 PRN PRN Reason: Nausea/Vomiting Pneumococcal Polyvalent Vaccine (Pneumovax 23 Vaccine) 0.5 ml IM .ONCE ONE Stop: 09/14/16 11:04 Fluticasone/Salmeterol (Advair Diskus 250/50) 1 puff IH RQ12 [facility] Last Admin: 09/13/16 20:03 Dose: 1 puff Tramadol HCl (Ultram) 50 mg PO TID [facility] Last Admin: 09/13/16 17:16 Dose: 50 mg - Labs Labs: 09/13/16 21:23 Assessment and Plan - Assessment and Plan (Free Text) Assessment: 1. PAD 2. CAD 3. Dementia 4. HTN S/P BKA
[2016-09-14] MEDS: Piperacillin/Tazobact 3.375 GM in Sodium Chloride 100 ML IVPB SCH ×4 (01:53→20:01)
[2016-09-14] MEDS: Lactated Ringer's 1,000 ML IV SCH ×3 (06:03→20:02)
[2016-09-14 06:29] VITALS: RESP 20
[2016-09-14] MEDS: Albuterol-Ipratrop 3 mg / 0.5 (3 ml) UD IH SCH ×2 (07:20→15:42)
[2016-09-14] MEDS: Fluticasone-Salmeterol 250-50mcg Diskus IH SCH ×2 (07:20→19:10)
[2016-09-14 08:00] LABS: BASO % 0.2 % (0.0-2.0); EOS % 0.4 % (0.0-4.0); HEMATOCRIT 26.5 % (35.0-51.0); LYMPH % 8.6 % (20.0-40.0); MEAN CORPUSCULAR HEMOGLOBIN 27.8 pg (27.0-31.0); MEAN CORPUSCULAR HGB CONC 32.7 g/dL (33.0-37.0); MEAN PLATELET VOLUME 8.4 fL (7.2-11.7); MONO # 0.9 K/uL (0.0-0.8); MONO % 7.7 % (0.0-10.0); PLATELET COUNT 194 K/uL (130-400); RED CELL DISTRIBUTION WIDTH 14.7 % (11.5-14.5); WHITE BLOOD COUNT 11.7 K/uL (4.8-10.8)
[2016-09-14 08:29] LABS: CHLORIDE 98 mmol/L (98-107); SODIUM 132 mmol/L (132-148)
[2016-09-14 08:30] LABS: POTASSIUM 3.9 mmol/L (3.6-5.2)
[2016-09-14 08:32] LABS: ALB/GLOB RATIO 0.8 (1.0-2.1); ALKALINE PHOSPHATASE 112 U/L (38-126); ALT/SGPT 26 U/L (21-72); AST/SGOT 17 U/L (17-59); BLOOD UREA NITROGEN 18 mg/dL (9-20); CALCIUM 7.6 mg/dl (8.6-10.4); CARBON DIOXIDE 22 mmol/L (22-30); GFR AFRICAN-AMERICAN > 60; GLUCOSE,RANDOM 143 mg/dL (75-110); TOTAL PROTEIN 5.4 g/dL (6.3-8.3)
--- NOTE | 2016-09-14 08:59 | PN ---
DATE: 09/14/2016 I saw him resting comfortably in bed. He is alert, no pain, no complaints. He wants to know when he can go home. He is talking about going back to [facility]. He has IV antibiotics runn ing. He is also telling me he is hungry and he wants to eat some breakfast. No acute distress. He has 98.2 temp, 88 pulse, 122/74 blood pressure, 20 respiratory rate, 99% O2 sat on room air. HEAD: Atraumatic, normocephalic. Throat is moist. NECK: Supple. HEART: Regular rate. LUNGS: Decreased breath sounds, but clear to auscultation. Poor effort. ABDOMEN: Soft, nontender, positive bowel sounds. EXTREMITIES: He has a left AKA status post surgery yesterday. MEDICATIONS: He is currently on Advair, Cozaar, Dilaudid, DuoNeb, Duragesic patch, Glucotrol, hepari n, lactated Ringer, mag oxide, Zosyn IV, Plavix, Singulair, Ultram, and Zofran. Last blood sugar was 155. He has a 13.4 white count, 6.8 hemoglobin. He is being transfused 2 units of packed red blood cells. Will recheck his labs today and tomorrow. Will get him back to subacute rehab at [facility] where he lives when okay with surgery and infectious disease. Will continue with aggressive treatment and ca re postop left AKA. Kev Solorzano DO cc: [id number] TT: 09/14/2016 08:58:39 Confirmation # [id number] Dictation # [id number] girish
[2016-09-14] MEDS: Magnesium Oxide 400 mg Tab UD PO SCH ×2 (09:12→17:42)
[2016-09-14 10:00] LABS: EOSINOPHIL 1 % (0-4); NEUTROPHIL 84 % (50-75); TOTAL CELLS COUNTED 100
--- NOTE | 2016-09-14 10:44 | CP.PCM.PN ---
Subjective - Date & Time of Evaluation Date of Evaluation: 09/14/16 Time of Evaluation: 07:15 - Subjective Subjective: Vascular surgery progress note for Dr. White Pt S&E. Pt unresponsive to questions, but able to shake or nod his head. Pt denies pain and agrees that medicine is controlling his pain. Pt denies nausea or vomiting. Post op CBC done at 8 pm to evaluate H&H. Pt was given two units of PRBCs last night when his Hgb came back at 6.8. This morning, his hgb has responded appropriately. Objective - Vital Signs/Intake and Output Vital Signs (last 24 hours): Temp Pulse Resp BP Pulse Ox 98 F 87 20 150/85 100 09/14/16 08:42 09/14/16 08:42 09/14/16 08:42 09/14/16 08:42 09/14/16 08:42 Intake and Output: 09/14/16 09/14/16 06:59 18:59 Intake Total 345 325 Balance 345 325 - Medications Medications: Current Medications Albuterol/Ipratropium (Duoneb 3 Mg/0.5 Mg (3 Ml) Ud) 3 ml IH RQ8 [facility] Last Admin: 09/14/16 07:20 Dose: 3 ml Clopidogrel Bisulfate (Plavix) 75 mg PO DAILY [facility] Last Admin: 09/14/16 09:12 Dose: 75 mg Fentanyl (Duragesic) 1 patch TD Q72 [facility] Last Admin: 09/11/16 21:37 Dose: 1 patch Glipizide (Glucotrol) 5 mg PO DAILY [facility] Last Admin: 09/14/16 09:12 Dose: 5 mg Heparin Sodium (Porcine) (Heparin) 5,000 units SC Q12 [facility] Last Admin: 09/14/16 09:13 Dose: 5,000 units Hydromorphone HCl (Dilaudid) 0.5 mg IVP Q4H PRN PRN Reason: Pain, moderate (4-7) Last Admin: 09/13/16 22:53 Dose: 0.5 mg Piperacillin Sod/Tazobactam (Sod 3.375 gm/ Sodium Chloride) 100 mls @ 200 mls/ hr IVPB Q6H [facility] Last Admin: 09/14/16 07:45 Dose: 200 mls/hr Lactated Ringer's (Lactated Ringer's) 1,000 mls @ 100 mls/hr IV .Q10H [facility] Last Admin: 09/14/16 06:03 Dose: Not Given Losartan Potassium (Cozaar) 50 mg PO DAILY [facility] Last Admin: 09/14/16 09:12 Dose: 50 mg Magnesium Oxide (Mag-Ox) 400 mg PO BID [facility] Last Admin: 09/14/16 09:12 Dose: 400 mg Montelukast Sodium (Singulair) 10 mg PO HS [facility] Last Admin: 09/13/16 22:33 Dose: Not Given Ondansetron HCl (Zofran Inj) 4 mg IVP Q4 PRN PRN Reason: Nausea/Vomiting Pneumococcal Polyvalent Vaccine (Pneumovax 23 Vaccine) 0.5 ml IM .ONCE ONE Stop: 09/14/16 11:04 Fluticasone/Salmeterol (Advair Diskus 250/50) 1 puff IH RQ12 [facility] Last Admin: 09/14/16 07:20 Dose: 1 puff Tramadol HCl (Ultram) 50 mg PO TID [facility] Last Admin: 09/14/16 09:12 Dose: 50 mg - Labs Labs: 09/14/16 07:49 09/14/16 07:49 - Constitutional Appears: No Acute Distress, Unkempt, Confused - Head Exam Head Exam: ATRAUMATIC, NORMOCEPHALIC - Eye Exam Eye Exam: EOMI. absent: Scleral icterus - Respiratory Exam Respiratory Exam: NORMAL BREATHING PATTERN. absent: Respiratory Distress - Cardiovascular Exam Cardiovascular Exam: absent: Tachycardia, JVD - Extremities Exam Extremities Exam: absent: Pedal Edema, Tenderness Additional comments: dressing on left stump is clean and dry. no flinching or guarding with palpation - Neurological Exam Neurological Exam: Awake. absent: Alert, Oriented x3 - Psychiatric Exam Psychiatric exam: Flat Affect. absent: Agitated - Skin Skin Exam: Dry, Pallor, Warm Assessment and Plan - Assessment and Plan (Free Text) Assessment: Assessment: 76M w/ Left PAD s/p Left AKA POD1 Plan: - continue antibiotics per ID - continue pain management - continue medical management - will continue to monitor H&H and provide blood products as needed - continue heparin prophylaxis - continue incentive spirometer - PT ordered - d/w Dr. Christopher Alexander PGY2
[2016-09-14] MEDS ORDERED: Pneumococcal 23-Valent Vaccine IM ONE (11:03)
[2016-09-14] MEDS: HYDROmorphone 0.5 mg/0.5 ml ISec IVP PRN ×2 (13:36→23:41)
--- NOTE | 2016-09-14 18:41 | CP.PCM.PN ---
Subjective - Date & Time of Evaluation Date of Evaluation: 09/14/16 Time of Evaluation: 09:00 - Subjective Subjective: WEAK AND BEDRIDDEN'S/P LEFT AKA EMPIRIC IV RX TO [facility] FOR TOTAL 7 DAYS Objective - Vital Signs/Intake and Output Vital Signs (last 24 hours): Temp Pulse Resp BP Pulse Ox 97.7 F 87 20 119/64 97 09/14/16 15:50 09/14/16 16:29 09/14/16 15:50 09/14/16 15:50 09/14/16 15:50 Intake and Output: 09/14/16 09/14/16 06:59 18:59 Intake Total 345 325 Balance 345 325 - Medications Medications: Current Medications Albuterol/Ipratropium (Duoneb 3 Mg/0.5 Mg (3 Ml) Ud) 3 ml IH RQ8 [facility] Last Admin: 09/14/16 15:42 Dose: 3 ml Clopidogrel Bisulfate (Plavix) 75 mg PO DAILY [facility] Last Admin: 09/14/16 09:12 Dose: 75 mg Fentanyl (Duragesic) 1 patch TD Q72 [facility] Last Admin: 09/11/16 21:37 Dose: 1 patch Glipizide (Glucotrol) 5 mg PO DAILY [facility] Last Admin: 09/14/16 09:12 Dose: 5 mg Heparin Sodium (Porcine) (Heparin) 5,000 units SC Q12 [facility] Last Admin: 09/14/16 09:13 Dose: 5,000 units Hydromorphone HCl (Dilaudid) 0.5 mg IVP Q4H PRN PRN Reason: Pain, moderate (4-7) Last Admin: 09/14/16 13:36 Dose: 0.5 mg Piperacillin Sod/Tazobactam (Sod 3.375 gm/ Sodium Chloride) 100 mls @ 200 mls/ hr IVPB Q6H [facility] Last Admin: 09/14/16 13:38 Dose: 200 mls/hr Lactated Ringer's (Lactated Ringer's) 1,000 mls @ 100 mls/hr IV .Q10H [facility] Last Admin: 09/14/16 11:06 Dose: 100 mls/hr Losartan Potassium (Cozaar) 50 mg PO DAILY [facility] Last Admin: 09/14/16 09:12 Dose: 50 mg Magnesium Oxide (Mag-Ox) 400 mg PO BID [facility] Last Admin: 09/14/16 17:42 Dose: 400 mg Montelukast Sodium (Singulair) 10 mg PO HS [facility] Last Admin: 09/13/16 22:33 Dose: Not Given Ondansetron HCl (Zofran Inj) 4 mg IVP Q4 PRN PRN Reason: Nausea/Vomiting Fluticasone/Salmeterol (Advair Diskus 250/50) 1 puff IH RQ12 [facility] Last Admin: 09/14/16 07:20 Dose: 1 puff Tramadol HCl (Ultram) 50 mg PO TID [facility] Last Admin: 09/14/16 17:40 Dose: 50 mg - Labs Labs: 09/14/16 07:49 09/14/16 07:49 - Constitutional Appears: Non-toxic, Confused, Chronically Ill - Head Exam Head Exam: NORMOCEPHALIC - Eye Exam Eye Exam: PERRL. absent: Scleral icterus - ENT Exam ENT Exam: Mucous Membranes Dry - Neck Exam Neck Exam: absent: Lymphadenopathy - Respiratory Exam Respiratory Exam: Decreased Breath Sounds, Rhonchi - Cardiovascular Exam Cardiovascular Exam: REGULAR RHYTHM - GI/Abdominal Exam GI & Abdominal Exam: Distended, Soft Assessment and Plan - Assessment and Plan (Free Text) Plan: SEVERE PVD/ ULCER LLE REQIRED AKA DUE TO DEFORMITY SECONDARYU TO STROKE CONT EMPIRIC IV ANTIBIOTICS AND WOUND CARE
--- NOTE | 2016-09-14 22:50 | CP.PCM.PN ---
Subjective - Date & Time of Evaluation Date of Evaluation: 09/14/16 Time of Evaluation: 08:25 - Subjective Subjective: Patient comfortable No cardiac events Review Of Systems Constitutional: Negative for: Fever, Chills Cardiovascular: Negative for: Chest Pain Respiratory: Negative for: Shortness of Breath Musculoskeletal: Positive for: Other (chronic wounds to bilateral lower legs) Physical Exam - Physical Exam Appears: Non-toxic, Chronically Ill Skin: Warm, Dry, No Rash Head: Atraumatic, Normacephalic Chest: Symmetrical Cardiovascular: Rhythm Regular, No Murmur Respiratory: Normal Breath Sounds, No Rales, No Rhonchi, No Wheezing Gastrointestinal/Abdominal: Soft, No Tenderness Extremity: Other S/P Left BKA . Right leg: small area of stage 3 ulcers.) Neurological/Psych: Oriented x3, Normal Speech Objective - Vital Signs/Intake and Output Vital Signs (last 24 hours): Temp Pulse Resp BP Pulse Ox 97.7 F 87 20 119/64 97 09/14/16 15:50 09/14/16 16:29 09/14/16 15:50 09/14/16 15:50 09/14/16 15:50 Intake and Output: 09/14/16 09/15/16 18:59 06:59 Intake Total 325 Balance 325 - Medications Medications: Current Medications Albuterol/Ipratropium (Duoneb 3 Mg/0.5 Mg (3 Ml) Ud) 3 ml IH RQ8 [facility] Last Admin: 09/14/16 15:42 Dose: 3 ml Clopidogrel Bisulfate (Plavix) 75 mg PO DAILY [facility] Last Admin: 09/14/16 09:12 Dose: 75 mg Fentanyl (Duragesic) 1 patch TD Q72 [facility] Last Admin: 09/11/16 21:37 Dose: 1 patch Glipizide (Glucotrol) 5 mg PO DAILY [facility] Last Admin: 09/14/16 09:12 Dose: 5 mg Heparin Sodium (Porcine) (Heparin) 5,000 units SC Q12 [facility] Last Admin: 09/14/16 21:35 Dose: 5,000 units Hydromorphone HCl (Dilaudid) 0.5 mg IVP Q4H PRN PRN Reason: Pain, moderate (4-7) Last Admin: 09/14/16 13:36 Dose: 0.5 mg Piperacillin Sod/Tazobactam (Sod 3.375 gm/ Sodium Chloride) 100 mls @ 200 mls/ hr IVPB Q6H [facility] Last Admin: 09/14/16 20:01 Dose: 200 mls/hr Lactated Ringer's (Lactated Ringer's) 1,000 mls @ 100 mls/hr IV .Q10H [facility] Last Admin: 09/14/16 20:02 Dose: 100 mls/hr Losartan Potassium (Cozaar) 50 mg PO DAILY [facility] Last Admin: 09/14/16 09:12 Dose: 50 mg Magnesium Oxide (Mag-Ox) 400 mg PO BID [facility] Last Admin: 09/14/16 17:42 Dose: 400 mg Montelukast Sodium (Singulair) 10 mg PO HS [facility] Last Admin: 09/14/16 21:35 Dose: 10 mg Ondansetron HCl (Zofran Inj) 4 mg IVP Q4 PRN PRN Reason: Nausea/Vomiting Fluticasone/Salmeterol (Advair Diskus 250/50) 1 puff IH RQ12 [facility] Last Admin: 09/14/16 19:10 Dose: 1 puff Tramadol HCl (Ultram) 50 mg PO TID [facility] Last Admin: 09/14/16 17:40 Dose: 50 mg - Labs Labs: 09/14/16 07:49 09/14/16 07:49 Assessment and Plan - Assessment and Plan (Free Text) Assessment: 1. PAD 2. CAD 3. Dementia 4. HTN S/P BKA
[2016-09-15] MEDS: Albuterol-Ipratrop 3 mg / 0.5 (3 ml) UD IH SCH ×3 (00:35→19:34)
[2016-09-15] MEDS: Piperacillin/Tazobact 3.375 GM in Sodium Chloride 100 ML IVPB SCH ×4 (01:22→21:06)
[2016-09-15] MEDS: Lactated Ringer's 1,000 ML IV SCH ×2 (06:15→16:50)
[2016-09-15] MEDS: HYDROmorphone 0.5 mg/0.5 ml ISec IVP PRN (06:16)
[2016-09-15] MEDS: Fluticasone-Salmeterol 250-50mcg Diskus IH SCH ×2 (07:58→19:34)
[2016-09-15 08:06] LABS: BASO % 0.3 % (0.0-2.0); EOS # 0.1 K/uL (0.0-0.7); EOS % 0.6 % (0.0-4.0); HEMATOCRIT 27.9 % (35.0-51.0); LYMPH # 0.9 K/uL (1.0-4.3); LYMPH % 7.8 % (20.0-40.0); MEAN CORPUSCULAR HEMOGLOBIN 28.4 pg (27.0-31.0); MEAN CORPUSCULAR HGB CONC 33.4 g/dL (33.0-37.0); MEAN PLATELET VOLUME 8.7 fL (7.2-11.7); MONO # 0.7 K/uL (0.0-0.8); MONO % 6.3 % (0.0-10.0); PLATELET COUNT 191 K/uL (130-400); WHITE BLOOD COUNT 11.5 K/uL (4.8-10.8)
[2016-09-15 08:20] LABS: CHLORIDE 98 mmol/L (98-107); POTASSIUM 3.9 mmol/L (3.6-5.2); SODIUM 130 mmol/L (132-148)
[2016-09-15 08:23] LABS: ALB/GLOB RATIO 0.8 (1.0-2.1); ALKALINE PHOSPHATASE 153 U/L (38-126); ALT/SGPT 21 U/L (21-72); AST/SGOT 26 U/L (17-59); BILIRUBIN,TOTAL 0.6 mg/dL (0.2-1.3); BLOOD UREA NITROGEN 10 mg/dL (9-20); CARBON DIOXIDE 20 mmol/L (22-30); GFR AFRICAN-AMERICAN > 60; GLUCOSE,RANDOM 114 mg/dL (75-110); TOTAL PROTEIN 5.9 g/dL (6.3-8.3)
[2016-09-15 08:24] LABS: CALCIUM 7.6 mg/dl (8.6-10.4)
[2016-09-15 09:34] LABS: EOSINOPHIL 2 % (0-4); NEUTROPHIL 82 % (50-75); TOTAL CELLS COUNTED 100
--- NOTE | 2016-09-15 10:10 | PN ---
DATE: 09/15/2016 I saw the patient resting in bed this morning. He is very alert and talkative. He knew me right paula y. He is much better mentally. I think getting this infection and ulcer out of the way is helping h im. He is being seen by infectious disease, cardiology, surgery. PHYSICAL EXAMINATION: VITAL SIGNS: 97.9 temp, 88 pulse, 157/83 blood pressure, 20 respiratory rate, 98% O2 sat on room air at this time. HEENT: His head is atraumatic, normocephalic. GENERAL: He is alert, eyes wide open, talking to me. He is comfortable. HEART: Regular rate. LUNGS: Decreased breath sounds, poor effort, but clear to auscultation. ABDOMEN: Soft, nontender, positive bowel sounds. EXTREMITIES: He is status post left AKA. The right leg has no edema. MEDICATIONS: He is currently on Advair, Cozaar, Dilaudid, DuoNeb, Duragesic, Glucotrol, heparin, lac tated Ringers, magnesium oxide, Zosyn IV, Plavix, Singulair, Ultram, and Zofran. LABORATORY: He has a 130 sodium, potassium 3.9, BUN is 10, creatinine 0.6, GFR is greater than 60, s ugar is 114, calcium 7.6, total bili is 0.6, AST is 26, ALT is 21, alk phos is 153, white count is do wn to 11.5, hemoglobin 9.3 which is better, hematocrit 27.9, platelets of 191. I am hoping to discharge him back to [facility] hopefully by tomorrow, Saturday in the afternoon. He i s a permanent resident there. He will continue with the IV antibiotics and same medicines here as he would be there. I w8ill talk to case management about this, see if they could arrange for tomorrow discharge, especially if it is okay with infectious disease and surgery. I think he is getting well enough to have that done. He is here for severe peripheral vascular disease with infection of the foot. 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 Kev Solorzano DO cc: [id number] TT: 09/15/2016 10:10:04 Confirmation # [id number] Dictation # [id number] tn
[2016-09-15] MEDS: Magnesium Oxide 400 mg Tab UD PO SCH ×2 (11:21→17:37)
--- NOTE | 2016-09-15 14:44 | CP.PCM.PN ---
Subjective - Date & Time of Evaluation Date of Evaluation: 09/15/16 Time of Evaluation: 07:00 - Subjective Subjective: VASCULAR SURGERY PROGRESS NOTE FOR DR. ARMSTRONG Patient seen and examined at bedside. He states that his pain is well controlled with pain medications. He states that he didn't eat much. Objective - Vital Signs/Intake and Output Vital Signs (last 24 hours): Temp Pulse Resp BP Pulse Ox 97.9 F 88 20 157/83 H 98 09/15/16 07:55 09/15/16 08:00 09/15/16 07:55 09/15/16 07:55 09/15/16 07:55 Intake and Output: 09/15/16 09/15/16 06:59 18:59 Intake Total 1140 1250 Output Total 1 Balance 1139 1250 - Medications Medications: Current Medications Albuterol/Ipratropium (Duoneb 3 Mg/0.5 Mg (3 Ml) Ud) 3 ml IH RQ8 [facility] Last Admin: 09/15/16 07:58 Dose: 3 ml Clopidogrel Bisulfate (Plavix) 75 mg PO DAILY [facility] Last Admin: 09/15/16 11:20 Dose: 75 mg Fentanyl (Duragesic) 1 patch TD Q72 [facility] Last Admin: 09/11/16 21:37 Dose: 1 patch Glipizide (Glucotrol) 5 mg PO DAILY [facility] Last Admin: 09/15/16 11:21 Dose: 5 mg Heparin Sodium (Porcine) (Heparin) 5,000 units SC Q12 [facility] Last Admin: 09/15/16 11:21 Dose: 5,000 units Hydromorphone HCl (Dilaudid) 0.5 mg IVP Q4H PRN PRN Reason: Pain, moderate (4-7) Last Admin: 09/15/16 06:16 Dose: 0.5 mg Piperacillin Sod/Tazobactam (Sod 3.375 gm/ Sodium Chloride) 100 mls @ 200 mls/ hr IVPB Q6H [facility] Last Admin: 09/15/16 13:38 Dose: 200 mls/hr Lactated Ringer's (Lactated Ringer's) 1,000 mls @ 100 mls/hr IV .Q10H [facility] Last Admin: 09/15/16 06:15 Dose: 100 mls/hr Losartan Potassium (Cozaar) 50 mg PO DAILY [facility] Last Admin: 09/15/16 11:27 Dose: 50 mg Magnesium Oxide (Mag-Ox) 400 mg PO BID [facility] Last Admin: 09/15/16 11:21 Dose: 400 mg Montelukast Sodium (Singulair) 10 mg PO HS [facility] Last Admin: 09/14/16 21:35 Dose: 10 mg Ondansetron HCl (Zofran Inj) 4 mg IVP Q4 PRN PRN Reason: Nausea/Vomiting Fluticasone/Salmeterol (Advair Diskus 250/50) 1 puff IH RQ12 [facility] Last Admin: 09/15/16 07:58 Dose: 1 puff Tramadol HCl (Ultram) 50 mg PO TID [facility] Last Admin: 09/15/16 13:38 Dose: 50 mg - Labs Labs: 09/15/16 07:45 09/15/16 07:45 - Constitutional Appears: Non-toxic, No Acute Distress - Respiratory Exam Respiratory Exam: NORMAL BREATHING PATTERN. absent: Respiratory Distress - Cardiovascular Exam Cardiovascular Exam: +S1, +S2 - Extremities Exam Additional comments: Stump dressing clean/dry/intact Assessment and Plan - Assessment and Plan (Free Text) Assessment: 76M w/ Left PAD s/p Left AKA POD#2 - Hemoglobin improved today - Continue antibiotics per ID - Continue pain management - Continue heparin prophylaxis - May need angio for right leg, but can be done as outpatient - May DC at discretion of PMD - Discussed with Dr. Christopher Alexander PGY2
--- NOTE | 2016-09-15 19:06 | CP.PCM.PN ---
Subjective - Date & Time of Evaluation Date of Evaluation: 09/15/16 Time of Evaluation: 07:00 - Subjective Subjective: Patient s/p Left AKA No cardiac events Review Of Systems Constitutional: Negative for: Fever, Chills Cardiovascular: Negative for: Chest Pain Respiratory: Negative for: Shortness of Breath Musculoskeletal: Positive for: Other (chronic wounds to bilateral lower legs) Physical Exam - Physical Exam Appears: Non-toxic, Chronically Ill Skin: Warm, Dry, No Rash Head: Atraumatic, Normacephalic Chest: Symmetrical Cardiovascular: Rhythm Regular, No Murmur Respiratory: Normal Breath Sounds, No Rales, No Rhonchi, No Wheezing Gastrointestinal/Abdominal: Soft, No Tenderness Extremity: Other S/P Left BKA . Right leg: small area of stage 3 ulcers.) Neurological/Psych: Oriented x3, Normal Speech Objective - Vital Signs/Intake and Output Vital Signs (last 24 hours): Temp Pulse Resp BP Pulse Ox 99.1 F 91 H 20 136/68 95 09/15/16 16:00 09/15/16 16:00 09/15/16 16:00 09/15/16 16:00 09/15/16 16:00 Intake and Output: 09/15/16 09/16/16 18:59 06:59 Intake Total 1250 Balance 1250 - Medications Medications: Current Medications Albuterol/Ipratropium (Duoneb 3 Mg/0.5 Mg (3 Ml) Ud) 3 ml IH RQ8 [facility] Last Admin: 09/15/16 07:58 Dose: 3 ml Clopidogrel Bisulfate (Plavix) 75 mg PO DAILY [facility] Last Admin: 09/15/16 11:20 Dose: 75 mg Fentanyl (Duragesic) 1 patch TD Q72 [facility] Last Admin: 09/11/16 21:37 Dose: 1 patch Glipizide (Glucotrol) 5 mg PO DAILY [facility] Last Admin: 09/15/16 11:21 Dose: 5 mg Heparin Sodium (Porcine) (Heparin) 5,000 units SC Q12 [facility] Last Admin: 09/15/16 11:21 Dose: 5,000 units Hydromorphone HCl (Dilaudid) 0.5 mg IVP Q4H PRN PRN Reason: Pain, moderate (4-7) Last Admin: 09/15/16 06:16 Dose: 0.5 mg Piperacillin Sod/Tazobactam (Sod 3.375 gm/ Sodium Chloride) 100 mls @ 200 mls/ hr IVPB Q6H [facility] Last Admin: 09/15/16 13:38 Dose: 200 mls/hr Lactated Ringer's (Lactated Ringer's) 1,000 mls @ 100 mls/hr IV .Q10H [facility] Last Admin: 09/15/16 16:50 Dose: 100 mls/hr Losartan Potassium (Cozaar) 50 mg PO DAILY [facility] Last Admin: 09/15/16 11:27 Dose: 50 mg Magnesium Oxide (Mag-Ox) 400 mg PO BID [facility] Last Admin: 09/15/16 17:37 Dose: 400 mg Montelukast Sodium (Singulair) 10 mg PO HS [facility] Last Admin: 09/14/16 21:35 Dose: 10 mg Ondansetron HCl (Zofran Inj) 4 mg IVP Q4 PRN PRN Reason: Nausea/Vomiting Fluticasone/Salmeterol (Advair Diskus 250/50) 1 puff IH RQ12 [facility] Last Admin: 09/15/16 07:58 Dose: 1 puff Tramadol HCl (Ultram) 50 mg PO TID [facility] Last Admin: 09/15/16 17:37 Dose: 50 mg - Labs Labs: 09/15/16 07:45 09/15/16 07:45 Assessment and Plan - Assessment and Plan (Free Text) Assessment: 1. PAD 2. CAD 3. Dementia 4. HTN S/P BKA
[2016-09-16] MEDS: Piperacillin/Tazobact 3.375 GM in Sodium Chloride 100 ML IVPB SCH ×4 (01:30→19:55)
[2016-09-16] MEDS: Lactated Ringer's 1,000 ML IV SCH ×2 (01:49→19:58)
[2016-09-16] MEDS: Albuterol-Ipratrop 3 mg / 0.5 (3 ml) UD IH SCH ×4 (02:12→23:50)
[2016-09-16 08:11] LABS: HEMATOCRIT 30.9 % (35.0-51.0); MEAN CELL VOLUME 85.2 fL (80.0-94.0); MEAN CORPUSCULAR HEMOGLOBIN 28.1 pg (27.0-31.0); MEAN PLATELET VOLUME 8.7 fL (7.2-11.7); RED CELL DISTRIBUTION WIDTH 15.2 % (11.5-14.5); WHITE BLOOD COUNT 10.8 K/uL (4.8-10.8)
[2016-09-16] MEDS: Fluticasone-Salmeterol 250-50mcg Diskus IH SCH ×2 (08:12→19:40)
[2016-09-16 08:26] LABS: CHLORIDE 99 mmol/L (98-107)
[2016-09-16 08:27] LABS: POTASSIUM 3.7 mmol/L (3.6-5.2); SODIUM 129 mmol/L (132-148)
[2016-09-16 08:29] LABS: ALB/GLOB RATIO 0.9 (1.0-2.1); AST/SGOT 23 U/L (17-59); BILIRUBIN,TOTAL 0.7 mg/dL (0.2-1.3); BLOOD UREA NITROGEN 7 mg/dL (9-20); CARBON DIOXIDE 19 mmol/L (22-30); GFR AFRICAN-AMERICAN > 60; TOTAL PROTEIN 6.2 g/dL (6.3-8.3)
[2016-09-16 08:30] LABS: ALKALINE PHOSPHATASE 155 U/L (38-126); ALT/SGPT 26 U/L (21-72); CALCIUM 7.8 mg/dl (8.6-10.4); GLUCOSE,RANDOM 117 mg/dL (75-110)
[2016-09-16] MEDS: Magnesium Oxide 400 mg Tab UD PO SCH ×2 (10:31→17:10)
--- NOTE | 2016-09-16 15:17 | CP.PCM.PN ---
Subjective - Date & Time of Evaluation Date of Evaluation: 09/16/16 Time of Evaluation: 08:00 - Subjective Subjective: afeb nad alert wound healing Objective - Vital Signs/Intake and Output Vital Signs (last 24 hours): Temp Pulse Resp BP Pulse Ox 97.5 F L 96 H 20 133/78 97 09/16/16 07:54 09/16/16 10:25 09/16/16 07:54 09/16/16 10:25 09/16/16 07:54 Intake and Output: 09/16/16 09/16/16 06:59 18:59 Intake Total 1140 Output Total 1 Balance 1139 - Medications Medications: Current Medications Albuterol/Ipratropium (Duoneb 3 Mg/0.5 Mg (3 Ml) Ud) 3 ml IH RQ8 [facility] Last Admin: 09/16/16 08:12 Dose: 3 ml Clopidogrel Bisulfate (Plavix) 75 mg PO DAILY [facility] Last Admin: 09/16/16 10:30 Dose: 75 mg Glipizide (Glucotrol) 5 mg PO DAILY [facility] Last Admin: 09/16/16 10:32 Dose: 5 mg Heparin Sodium (Porcine) (Heparin) 5,000 units SC Q12 [facility] Last Admin: 09/16/16 10:31 Dose: 5,000 units Hydromorphone HCl (Dilaudid) 0.5 mg IVP Q4H PRN PRN Reason: Pain, moderate (4-7) Last Admin: 09/15/16 06:16 Dose: 0.5 mg Piperacillin Sod/Tazobactam (Sod 3.375 gm/ Sodium Chloride) 100 mls @ 200 mls/ hr IVPB Q6H [facility] Last Admin: 09/16/16 13:21 Dose: 200 mls/hr Lactated Ringer's (Lactated Ringer's) 1,000 mls @ 100 mls/hr IV .Q10H [facility] Last Admin: 09/16/16 01:49 Dose: 100 mls/hr Losartan Potassium (Cozaar) 50 mg PO DAILY [facility] Last Admin: 09/16/16 10:30 Dose: 50 mg Magnesium Oxide (Mag-Ox) 400 mg PO BID [facility] Last Admin: 09/16/16 10:31 Dose: 400 mg Montelukast Sodium (Singulair) 10 mg PO HS [facility] Last Admin: 09/15/16 21:07 Dose: 10 mg Ondansetron HCl (Zofran Inj) 4 mg IVP Q4 PRN PRN Reason: Nausea/Vomiting Fluticasone/Salmeterol (Advair Diskus 250/50) 1 puff IH RQ12 [facility] Last Admin: 09/16/16 08:12 Dose: 1 puff Tramadol HCl (Ultram) 50 mg PO TID [facility] Last Admin: 09/16/16 13:20 Dose: 50 mg Tramadol HCl (Ultram) 50 mg PO TID PRN PRN Reason: Pain, moderate (4-7) - Labs Labs: 09/16/16 07:55 09/16/16 07:55 - Constitutional Appears: Non-toxic, Chronically Ill - Head Exam Head Exam: NORMOCEPHALIC - Eye Exam Eye Exam: PERRL. absent: Scleral icterus - ENT Exam ENT Exam: Mucous Membranes Dry - Neck Exam Neck Exam: absent: Lymphadenopathy - Respiratory Exam Respiratory Exam: Decreased Breath Sounds, Rhonchi - Cardiovascular Exam Cardiovascular Exam: REGULAR RHYTHM, +S1, +S2 - GI/Abdominal Exam GI & Abdominal Exam: Distended, Soft. absent: Tenderness - Rectal Exam Rectal Exam: Deferred - Exam Exam: NORMAL INSPECTION - Extremities Exam Extremities Exam: absent: Pedal Edema - Back Exam Back Exam: absent: CVA tenderness (L), CVA tenderness (R) - Neurological Exam Neurological Exam: Alert, Awake, Oriented x3 - Psychiatric Exam Psychiatric exam: Normal Mood - Skin Skin Exam: Dry, Intact Assessment and Plan - Assessment and Plan (Free Text) Plan: s/p aka infected ulcer on iv rx for 7 days
[2016-09-16 16:31] VITALS: O2SAT 99
--- NOTE | 2016-09-16 21:11 | CP.PCM.PN ---
Subjective - Date & Time of Evaluation Date of Evaluation: 09/16/16 Time of Evaluation: 08:00 - Subjective Subjective: Patient with no cardiac events Review Of Systems Constitutional: Negative for: Fever, Chills Cardiovascular: Negative for: Chest Pain Respiratory: Negative for: Shortness of Breath Musculoskeletal: Positive for: Other (chronic wounds to bilateral lower legs) Physical Exam - Physical Exam Appears: Non-toxic, Chronically Ill Skin: Warm, Dry, No Rash Head: Atraumatic, Normacephalic Chest: Symmetrical Cardiovascular: Rhythm Regular, No Murmur Respiratory: Normal Breath Sounds, No Rales, No Rhonchi, No Wheezing Gastrointestinal/Abdominal: Soft, No Tenderness Extremity: Other S/P Left BKA . Right leg: small area of stage 3 ulcers.) Neurological/Psych: Oriented x3, Normal Speech Objective - Vital Signs/Intake and Output Vital Signs (last 24 hours): Temp Pulse Resp BP Pulse Ox 98.7 F 97 H 20 141/86 99 09/16/16 16:30 09/16/16 16:30 09/16/16 16:30 09/16/16 16:30 09/16/16 16:30 - Medications Medications: Current Medications Albuterol/Ipratropium (Duoneb 3 Mg/0.5 Mg (3 Ml) Ud) 3 ml IH RQ8 [facility] Last Admin: 09/16/16 16:19 Dose: 3 ml Clopidogrel Bisulfate (Plavix) 75 mg PO DAILY [facility] Last Admin: 09/16/16 10:30 Dose: 75 mg Glipizide (Glucotrol) 5 mg PO DAILY [facility] Last Admin: 09/16/16 10:32 Dose: 5 mg Heparin Sodium (Porcine) (Heparin) 5,000 units SC Q12 [facility] Last Admin: 09/16/16 21:00 Dose: 5,000 units Hydromorphone HCl (Dilaudid) 0.5 mg IVP Q4H PRN PRN Reason: Pain, moderate (4-7) Last Admin: 09/15/16 06:16 Dose: 0.5 mg Piperacillin Sod/Tazobactam (Sod 3.375 gm/ Sodium Chloride) 100 mls @ 200 mls/ hr IVPB Q6H [facility] Last Admin: 09/16/16 19:55 Dose: 200 mls/hr Losartan Potassium (Cozaar) 50 mg PO DAILY [facility] Last Admin: 09/16/16 10:30 Dose: 50 mg Magnesium Oxide (Mag-Ox) 400 mg PO BID [facility] Last Admin: 09/16/16 17:10 Dose: 400 mg Montelukast Sodium (Singulair) 10 mg PO HS [facility] Last Admin: 09/16/16 21:00 Dose: 10 mg Ondansetron HCl (Zofran Inj) 4 mg IVP Q4 PRN PRN Reason: Nausea/Vomiting Fluticasone/Salmeterol (Advair Diskus 250/50) 1 puff IH RQ12 [facility] Last Admin: 09/16/16 19:40 Dose: 1 puff Tramadol HCl (Ultram) 50 mg PO TID [facility] Last Admin: 09/16/16 17:10 Dose: 50 mg Tramadol HCl (Ultram) 50 mg PO TID PRN PRN Reason: Pain, moderate (4-7) - Labs Labs: 09/16/16 07:55 09/16/16 07:55 Assessment and Plan - Assessment and Plan (Free Text) Assessment: 1. PAD 2. CAD 3. Dementia 4. HTN S/P BKA
[2016-09-17] MEDS: Piperacillin/Tazobact 3.375 GM in Sodium Chloride 100 ML IVPB SCH ×3 (02:00→15:29)
[2016-09-17 07:25] LABS: HEMATOCRIT 29.5 % (35.0-51.0); MEAN CELL VOLUME 85.2 fL (80.0-94.0); MEAN CORPUSCULAR HEMOGLOBIN 28.1 pg (27.0-31.0); MEAN PLATELET VOLUME 8.5 fL (7.2-11.7); RED CELL DISTRIBUTION WIDTH 14.7 % (11.5-14.5); WHITE BLOOD COUNT 8.2 K/uL (4.8-10.8)
[2016-09-17 07:44] LABS: CHLORIDE 101 mmol/L (98-107); POTASSIUM 3.5 mmol/L (3.6-5.2); SODIUM 129 mmol/L (132-148)
[2016-09-17 07:46] LABS: GFR AFRICAN-AMERICAN > 60
[2016-09-17 07:47] LABS: ALB/GLOB RATIO 0.8 (1.0-2.1); ALKALINE PHOSPHATASE 135 U/L (38-126); ALT/SGPT 29 U/L (21-72); AST/SGOT 22 U/L (17-59); BILIRUBIN,TOTAL 0.4 mg/dL (0.2-1.3); BLOOD UREA NITROGEN 8 mg/dL (9-20); CALCIUM 7.6 mg/dl (8.6-10.4); CARBON DIOXIDE 20 mmol/L (22-30); GLUCOSE,RANDOM 122 mg/dL (75-110)
--- NOTE | 2016-09-17 08:30 | DS ---
I saw him resting comfortably in bed. He is alert. He is confused; that is his baseline, but he did know why was. I told him he is going back to [facility] and he said, "okay." He is on Advair, Cozaar. I am stopping the Dilaudid. Glucotrol, magnesium oxide, Plavix, Singulair, Ultram instead of Dilaudid, Zofran just in case he needs it for IV, and he will be on the Zosyn for 7 more days IV antibiotics. PHYSICAL EXAMINATION: VITAL SIGNS: He had a 98 temp, 97 pulse, 157/81 blood pressure, 20 respiratory rate, 99% O2 sat on r oom air. HEENT: Head is atraumatic, normocephalic. He is alert. He is looking at me. His throat is moist. HEART: Regular rate. LUNGS: Decreased breath sounds but clear to auscultation. ABDOMEN: Soft, nontender, positive bowel sounds. EXTREMITIES: He has a left AKA bandaged up. He has severe PVD on the right side but they can do out patient workup on that, as per vascular. LABORATORY DATA: He has a 129 sodium, potassium 3.7, BUN 7, creatinine 0.6, GFR is greater than 60. Last blood sugar was 114. Calcium is 7.8. AST is 23, ALT is 26, alkaline phosphatase 155. White c ount is 10.8, hemoglobin 10.2, platelets 233. He is being seen by infectious disease, cardiology and surgery, and they said he can be transferred t o [facility] where he lives and 7 more days of IV antibiotics. I will be following him there, checki ng his labs. He will be discharged today. He is status post severe peripheral vascular disease with ulcer, nonhealing; osteomyelitis, gangrene. He had a left above-knee amputation. He did very well. Kev Solorzano DO cc: [id number] TT: 09/17/2016 08:30:38 santi
[2016-09-17 08:40] VITALS: TEMP 97.7
--- NOTE | 2016-09-17 09:11 | PN ---
DATE: 09/16/2016 I saw the patient resting comfortably in bed this morning. He is alert, he is talking to me. He tel ls me he wants to get better and is also hungry for breakfast. No acute pain at this time. I know eloisa stone got some Dilaudid through the night. He is status post amputation. He is on Advair, Cozaar, Dilaudid, DuoNeb, Glucotrol, heparin, lactated Ringers, magnesium oxide, Grace vix, Singulair, Ultram, Zofran, Zosyn. PHYSICAL EXAMINATION: VITAL SIGNS: Temp 99, 95 pulse, 155/82 blood pressure, 20 respiratory rate, 98% O2 sat on room air. HEAD: Atraumatic, normocephalic. GENERAL: He is alert, aware. THROAT: Moist. NECK: Supple. HEART: Regular rate. LUNGS: Decreased breath sounds, poor inspiration, but clear to auscultation. ABDOMEN: Soft, nontender, positive bowel sounds. No guarding, no rebound. EXTREMITIES: He is status post left above-knee amputation. He is being seen by surgery, cardiology, and infectious disease. He has a 130 sodium, which was yesterday, 3.9 potassium. I am waiting for labs to populate for his c hemistry today. BUN is 10, creatinine 0.6. Last blood sugar was 143. Total bili is 0.6, AST is 26, ALT is 21. The hemoglobin was also 11.5 yesterday, 9.3 hemoglobin. I am waiting for labs to popula te for today. My plan for him is to go back on Sunday 09/17 to [facility] where he is a permanent resident to contin ue the same medications and IVs over there while he heals up. I think tomorrow will be a good day to go back. We will continue the IV antibiotics probably for another week or so, as per infectious dis ease. Continue with good postop care and he is here for status post left above-knee amputation for s evere infection, nonhealing wound. I will consult case management. I will try and check his labs to dami. Kev Solorzano DO cc: [id number] TT: 09/16/2016 10:26:39 Confirmation # [id number] Dictation # [id number] en
[2016-09-17] MEDS ORDERED: Potassium Chloride 20 mEq ER Tab PO ONE (10:00)
[2016-09-17] MEDS: Fluticasone-Salmeterol 250-50mcg Diskus IH SCH (10:50)
[2016-09-17] MEDS: Magnesium Oxide 400 mg Tab UD PO SCH (10:54)
[2016-09-17 17:10] VITALS: BP 146/84; PULSE 101
--- NOTE | 2016-09-19 18:31 | PQF DM ---
This form is a permanent part of the medical record Clarification of your documentation is requested to better reflect the severity of illness and intensity of treatment of your patient. Indicators present: [] Documented diagnosis of Diabetes [] Documented condition_ PVD & gangrene [] A1C results [X] Diabetic medications [X] Elevated blood glucose [X] Nutritional consults [] ADA diet [X] Other: [ SEVERE PVD WITH GANGRENE, ULCERS BILATERAL, LEFT AKA DONE] Location in the medical record that reflects the above clinical findings:[ H&P ED RECORD, P.NOTES, MEDS ORDERS] Treatment Provided: GLIPIZIDE 5 mg PO DIALY PHYSICIAN'S RESPONSE Based on your medical judgment of the clinical indicators outlined above, are you treating this patient for a known or suspected: [x] Diabetes Mellitus, Type I [x] Controlled [] Uncontrolled [] Diabetes Mellitus, Type II [] Controlled [] Uncontrolled [] Diabetes, Steroid induced [] Controlled [] Uncontrolled [] Diabetic conditions/complications [] Other, please indicate [] [] If Unable to Determine, please check the box, sign and date. Present On Admission (POA) Indicator: [] Present at the time of admission [] Not present at the time of admission [] Clinically Undetermined In responding to this query, please exercise your independent professional judgment. The fact that a question is asked does not imply that any particular answer is desired or expected. Thank you for your clarification on this documentation. If you have any questions please call:[[phone] ] * Thank you, [ Roz Corrales] pear picker RADHA
== END 2016-09-17 15:40 | DRG 240 ==
LOC: C.ER 15:12 → C.9E 17:56 → C.5T 18:55
PROVIDERS: ADMIT Family Medicine; ATTEND Family Medicine
PROC: 0Y680ZZ Detachment at Left Femoral Region, Open Approach (ICD-10-PCS; principal; 2016-09-13 12:45)
PROC: 30233N1 Transfusion of Nonautologous Red Blood Cells into Peripheral Vein, Percutaneous Approach (ICD-10-PCS; 2016-09-14)
DX: E11.52 Type 2 diabetes mellitus with diabetic peripheral angiopathy with gangrene (principal); I70.262 Atherosclerosis of native arteries of extremities with gangrene, left leg; I69.354 Hemiplegia and hemiparesis following cerebral infarction affecting left non-dominant side; F03.90 Unspecified dementia, unspecified severity, without behavioral disturbance, psychotic disturbance, mood disturbance, and anxiety; L97.919 Non-pressure chronic ulcer of unspecified part of right lower leg with unspecified severity; J44.9 Chronic obstructive pulmonary disease, unspecified; I70.239 Atherosclerosis of native arteries of right leg with ulceration of unspecified site; L97.529 Non-pressure chronic ulcer of other part of left foot with unspecified severity; D64.9 Anemia, unspecified; I10 Essential (primary) hypertension; M24.562 Contracture, left knee; I25.10 Atherosclerotic heart disease of native coronary artery without angina pectoris; J45.909 Unspecified asthma, uncomplicated; M19.041 Primary osteoarthritis, right hand; E78.00 Pure hypercholesterolemia, unspecified; Z91.81 History of falling; Z98.42 Cataract extraction status, left eye; Z87.891 Personal history of nicotine dependence; Z79.84 Long term (current) use of oral hypoglycemic drugs

== ENCOUNTER 2016-10-29 08:21 | Day surgery (SDC) | payer MEDICARE, OTHER ==
[2016-10-19 11:14] VITALS: BMI 20.9
[2016-10-29 09:13] VITALS: TEMP 97.9
[2016-10-29] MEDS ORDERED: Dexmedetomidine Hydrochloride 100 mcg/ml (2ML) ONE (10:18)
[2016-10-29] MEDS ORDERED: Midazolam 2 MG/2 ML VIAL ONE ×2 (10:18→11:33)
[2016-10-29] MEDS ORDERED: Etomidate 20 mg/10ml Inj IV ONE (10:19)
[2016-10-29] MEDS ORDERED: Iodixanol 320 MG/ML 100 ML BOTTLE IV ONE (10:28)
[2016-10-29] MEDS ORDERED: Iodixanol 320 MG/ML 200 ML BOTTLE IV ONE ×2 (10:28→11:29)
[2016-10-29] MEDS ORDERED: Lidocaine 2% Inj (20ml) ONE (10:40)
--- NOTE | 2016-10-29 12:05 | PCM.SURG1 ---
Surgeon's Initial Post Op Note - Surgeon's Notes Surgeon: Dr White Social Media Content Manager: Dr Mancilla PGY2 Type of Anesthesia: General IV Pre-Operative Diagnosis: right limb ischemia Operative Findings: distal right SFA stenosis. right popliteal stent stenosis Post-Operative Diagnosis: as above Operation Performed: 1. Aorto-femoral angiogram. 2. Selective catheterization of right femoral artery. 3. artherectomy w/ 6mm stent of distal SFA. 4. 4mm balloon angioplasty of popliteal stent. 5. percutaneous closer of left groin site Specimen/Specimens Removed: none Estimated Blood Loss: EBL {In ML}: 50 Blood Products Given: N/A Drains Used: No Drains Post-Op Condition: Good Date of Surgery/Procedure: 10/29/16 Time of Surgery/Procedure: 12:05
[2016-10-29] MEDS ORDERED: Oxycodone/Acetaminophen 5/325 mg Tab PO PRN (12:07)
[2016-10-29] MEDS ORDERED: Sodium Chloride 0.9% 1,000 ML IV SCH (12:15)
[2016-10-29 14:50] VITALS: RESP 16; O2SAT 98
--- NOTE | 2016-10-29 14:50 | VAS ---
DATE: 10/29/2016 PREOPERATIVE DIAGNOSIS: Ischemic ulceration right foot. PROCEDURE CARRIED OUT: Aortofemoral angiogram via left groin with selective catheterization of right femoral artery, and then we did a Pathway atherectomy of the right superficial and popliteal artery, and balloon angioplasty of same and then we also deployed a 6 mm x 60 mm stent in the distal SFA. SURGEON: Darwin White Jr., MD REFRIGERATOR CRATER: Dr. Mancilla, resident ANESTHESIOLOGIST: Samira Alcantara CRNA A 76-year-old male, previous left above-knee amputation with ischemic ulceration of the foot. OPERATIVE FINDINGS: The aorta was free of significant occlusive disease. The left renal artery had approximately a 70% stenosis in its proximal portion. The common iliac, external iliac, internal mona ac arteries are free of significant occlusive disease. Both common femoral arteries are free of sign ificant occlusive disease. On the right side, the superficial femoral artery was widely patent excep t for an area of approximately 60% stenosis just above Freddie's canal and an area of approximately 60 % stenosis in the previously placed popliteal artery stent. Below this, the peroneal artery was the main vessel into the foot with reconstitution of the anterior tibial/dorsalis pedis in its distal thi rd. The posterior tibial did not reconstitute as a named vessel. Subsequent to the performance of the diagnostic arteriogram, a stiff-angled guidewire was advanced ov er the aortic bifurcation and a 7-Ivorian sheath positioned in the mid portion of the superficial femo ral artery. Using road mapping techniques, the lesions were all crossed. I exchanged for an 0.014 w grace and a Pathway atherectomy device was used, but this did not have much effect on the proximal lesi on, but only on the popliteal lesion where the in-stent stenosis. We then ballooned this with a 4 mm balloon proximally. We then deployed a 6 mm stent and ballooned this with a 6 mm balloon. The carline l results were much improved. There was brisk flow into the foot. The procedure was then terminated . A Perclose device deployed in the groin. OPERATION CARRIED OUT: Aortofemoral angiogram with selective catheterization of right femoral artery , Pathway atherectomy of the right superficial femoral artery and popliteal artery, balloon angioplas ty of the popliteal artery and then stenting of the distal portion of the superficial femoral artery. A Perclose device was deployed in the groin. Darwin White Jr., MD cc: [id number] TT: 10/29/2016 14:50:14 Confirmation # [id number] Dictation # [id number] en
[2016-10-29 18:25] VITALS: BP 133/73; PULSE 69
== END 2016-10-29 17:50 | disposition home or self-care (01) ==
LOC: C.SPRAD 08:21
PROVIDERS: ATTEND Surgery Vascular Surgery
DX: I70.235 Atherosclerosis of native arteries of right leg with ulceration of other part of foot (principal); L97.519 Non-pressure chronic ulcer of other part of right foot with unspecified severity; Z89.432 Acquired absence of left foot
CPT/HCPCS: 36247; 75625; 75716; 75774; 82948; C1724; C1725; C1760; C1766; C1769; C1876; C1884; C1887; C1894; J1644; J2250; J7040; Q9966; Q9967

== ENCOUNTER 2018-10-09 09:00 | Outpatient (CLI) | payer MEDICARE, OTHER | END 2018-10-09 09:01 | disposition home or self-care (01) | LOC: C.CARD 09:00 | DX: H53.121 Transient visual loss, right eye (principal) ==